=== PATIENT | female | born 1975 | race Caucasian/White ===

== ENCOUNTER 2022-11-28 18:50 | Emergency (ER) | payer SELFPAY ==
[~2022-11-28] VITALS: Ht 154.9 cm; Wt 79.4 kg
--- NOTE | 2022-11-28 19:10 | NUR ---
Dr. Walsh at bedside for MSE.
[2022-11-28] MEDS ORDERED: LIDOCAINE HCL 2% 20 ML VIAL IJ ONE (19:15)
[2022-11-28] MEDS ORDERED: LIDOCAINE HCL 2% 20 ML VIAL ONE (19:34)
--- NOTE | 2022-11-28 19:35 | NUR ---
Xray at bedside.
[2022-11-28] MEDS ORDERED: OXYCODONE/APAP 5-325 MG TABLET ONE (19:40)
[2022-11-28] MEDS ORDERED: OXYCODONE/APAP 5-325 MG TABLET PO ONE (19:45)
[2022-11-28] MEDS ORDERED: HYDR-3972 PO (20:16)
[2022-11-28] MEDS ORDERED: BACITRACIN ZINC OINT 15 GM TUBE ONE (20:27)
[2022-11-28] MEDS ORDERED: BACITRACIN ZINC OINT 15 GM TUBE TOP ONE (20:30)
[2022-11-28 20:54] VITALS: BP 115/90
--- NOTE | 2022-11-28 20:54 | NUR ---
Patient discharged to home in stable condition. Written and verbal after care instructions given. Patient verbalizes understanding of instructions. Stressed follow up or return to ER for worsening s/s. 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
== END 2022-11-28 20:55 | disposition home or self-care (01) ==
LOC: ER 18:51
DX: S91.311A Laceration without foreign body, right foot, initial encounter (principal); W23.0XXA Caught, crushed, jammed, or pinched between moving objects, initial encounter; Y92.89 Other specified places as the place of occurrence of the external cause; Z88.6 Allergy status to analgesic agent; Z85.3 Personal history of malignant neoplasm of breast; M34.9 Systemic sclerosis, unspecified; Z94.81 Bone marrow transplant status; S90.121A Contusion of right lesser toe(s) without damage to nail, initial encounter
CPT/HCPCS: 99283; 73620; 12001; J3490; A4663